=== PATIENT | male | born 1975 | race Caucasian/White ===

== ENCOUNTER 2017-11-09 20:18 | Emergency (ER) | payer MEDICARE, OTHER ==
[~2017-11-09] VITALS: Ht 167.6 cm; Wt 81.8 kg
[~2017-11-09 20:18] MED LIST: ZIPR20CA12 PO
[2017-11-09 20:21] VITALS: BP 143/89
[2017-11-09 21:22] LABS: BASOPHILS # (AUTO) 0.1 X10'3 (0-0.2); EOSINOPHILS # (AUTO) 0.3 X10'3 (0-0.9); EOSINOPHILS % (AUTO) 2.8 % (0-6); HEMATOCRIT 47.2 % (42.0-52.0); HEMOGLOBIN 16.5 g/dl (14.0-17.9); LYMPHOCYTES # (AUTO) 2.8 X10'3 (1.1-4.8); LYMPHOCYTES % (AUTO) 24.9 % (21-51); MEAN CORPUSCULAR HEMOGLOBIN 30.6 PG (27.0-31.0); MEAN CORPUSCULAR HGB CONC 34.9 % (33.0-36.5); MEAN CORPUSCULAR VOLUME 87.8 FL (78-98); MEAN PLATELET VOLUME 9.6 FL (7.4-10.4); MONOCYTES # (AUTO) 0.8 X10'3 (0-0.9); NEUTROPHILS # (AUTO) 7.3 X10'3 (1.8-7.7); NEUTROPHILS % (AUTO) 64.3 % (42-75); PLATELET COUNT 397 X10'3 (140-440); RED BLOOD COUNT 5.38 X10'6 (4.70-6.10); RED CELL DISTRIBUTION WIDTH 12.1 % (11.5-14.5); WHITE BLOOD COUNT 11.3 X10'3 (4.5-11.0)
[2017-11-09 21:25] LABS: INR 0.9 INR; PARTIAL THROMBOPLASTIN TIME 27 SECONDS (22-32); PROTHROMBIN TIME 9.6 SECONDS (9.0-12.0)
[2017-11-09 21:35] LABS: ALBUMIN 3.7 G/DL (3.4-5.0); ALBUMIN/GLOBULIN RATIO 0.8 (1.1-1.5); ALKALINE PHOSPHATASE 77 IU/L (46-116); ASPARTATE AMINO TRANSFERASE 25 U/L (10-37); BILIRUBIN,TOTAL 0.6 MG/DL (0.1-1.0); CALCIUM 8.7 MG/DL (8.5-10.1); CHLORIDE 102 MMOL/L (99-107); CREATININE 1.18 MG/DL (0.60-1.10); TOTAL CARBON DIOXIDE 22.3 MMOL/L (24-32); TOTAL PROTEIN 8.1 G/DL (6.4-8.2); eGFR 67 ML/MIN
[2017-11-09 22:20] LABS: ALANINE AMINOTRANSFERASE 49 U/L (12-78); BLOOD UREA NITROGEN 23 MG/DL (7-18); BUN/CREATININE RATIO 19.5 (5.4-32.0); POTASSIUM 3.7 MMOL/L (3.5-5.1)
[2017-11-09 22:22] LABS: ANION GAP 15 (8-16); SODIUM 139 MMOL/L (135-145)
[2017-11-09 22:28] LABS: GLUCOSE 139 MG/DL (70-104)
== END 2017-11-09 22:52 | disposition left against medical advice (07) ==
LOC: ER 20:18
DX: R00.2 Palpitations (principal); Z53.21 Procedure and treatment not carried out due to patient leaving prior to being seen by health care provider
CPT/HCPCS: 36415; 71045; 80053; 84484; 85025; 85610; 85730; 93005

== ENCOUNTER 2018-12-13 14:48 | Emergency (ER) | payer MEDICARE ==
[~2018-12-13] VITALS: Ht 180.3 cm; Wt 75.0 kg
[~2018-12-13 14:48] MED LIST changes: +etomidate 2mg/ml inj. ONE
[2018-12-13 15:37] LABS: CLARITY,URINE SLIGHTLY CLOUDY (Clear); COLOR,URINE AMBER (Yellow); GLUCOSE, URINE NEGATIVE (Neg); KETONES,URINE 40 mg/dl (Neg); LEUKOCYTE ESTERASE ,URINE NEGATIVE (Neg); NITRITES, URINE NEGATIVE (Neg); OCCULT BLOOD,URINE TRACE-INTACT (Neg); PH,URINE 6.5 (4.8-8.0); PROTEIN,URINE 30 mg/dl (Neg)
[2018-12-13 15:38] LABS: UA COLLECTION TYPE FOLEY CATH
[2018-12-13 15:44] LABS: SQUAMOUS EPITHELIAL CELL,UR NONE SEEN /LPF (FEW)
[2018-12-13 15:46] LABS: WBC CLUMPS,URINE FEW /HPF (NEGATIVE)
[2018-12-13 15:48] LABS: URINE AMPHETAMINE SCREEN NEGATIVE (Neg); URINE BARBITUATE SCREEN NEGATIVE (Neg); URINE BENZODIAZEPINES SCREEN NEGATIVE (Neg); URINE CANNABINOID SCREEN NEGATIVE (Neg); URINE COCAINE SCREEN NEGATIVE (Neg); URINE METHADONE SCREEN NEGATIVE (Neg); URINE OPIATE SCREEN NEGATIVE (Neg); URINE PHENCYCLIDINE SCREEN NEGATIVE (Neg)
[2018-12-13 15:50] LABS: CELLULAR CAST 0-4 /LPF (NEGATIVE); TRANSITIONAL EPI CELLS,URINE MODERATE /HPF
[2018-12-13] MEDS ORDERED: normal saline 1000ML IV soln IVB ONE (15:55)
--- NOTE | 2018-12-13 15:57 | NUR ---
PER DR ART: PLACE PT ON NON-REBREATHER 10L
[2018-12-13 16:00] LABS: BACTERIA,URINE 1+ /HPF (Neg); CAL OXALATE CRYSTALS FEW /HPF (NEGATIVE)
[2018-12-13] MEDS ORDERED: normal saline 1000ML IV soln IV ONE (16:00)
[2018-12-13 16:15] LABS: ABG BASE EXCESS -4.2 mmol/L (-2.0-3.0); ABG HCO3 19.2 mmol/L (22.0-26.0); ABG OXYGEN SATURATION 99.1 % (95-98); ABG PCO2 (T) 30.6 mmHg (35.0-48.0); ABG PH (T) 7.416 (7.350-7.450); ABG PO2 (T) 321.5 mmHg (83-108); FCOHb 0.3 % (0.5-1.5); FLOW 15 L/min; FMetHb 0.3 % (0.3-1.12); FO2Hb 98.5 % (94-100); PATIENT TEMPERATURE 37.2; RESPIRATORY RATE (OBSERVED) 20 b/min; TOTAL HEMOGLOBIN 13.5 G/dl (14.0-18.0)
--- NOTE | 2018-12-13 16:18 | NUR ---
PT IS NOW AWAKE, PT NOTIFIED THAT HE HAS BEEN PLACED ON A 5150 HOLD. SECURITY IS AT BEDSIDE SPEAKING WITH PT.
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
[2018-12-13] MEDS: metoprolol tartrate 1mg/ml inj IV SCH ×3 (16:35→17:05)
[2018-12-13 16:39] LABS: BASOPHILS % (AUTO) 0.4 % (0-1); EOSINOPHILS % (AUTO) 0.2 % (0-6); HEMATOCRIT 39.3 % (42.0-52.0); HEMOGLOBIN 13.5 g/dl (14.0-17.9); LYMPHOCYTES # (AUTO) 0.7 X10'3 (1.1-4.8); LYMPHOCYTES % (AUTO) 6.1 % (21-51); MEAN CORPUSCULAR HEMOGLOBIN 30.6 PG (27.0-31.0); MEAN CORPUSCULAR HGB CONC 34.3 g/dL (33.0-36.5); MEAN CORPUSCULAR VOLUME 89.2 FL (78-98); MEAN PLATELET VOLUME 7.3 FL (7.4-10.4); MONOCYTES # (AUTO) 1.8 X10'3 (0-0.9); MONOCYTES % (AUTO) 14.9 % (2-12); NEUTROPHILS # (AUTO) 9.4 X10'3 (1.8-7.7); NEUTROPHILS % (AUTO) 78.4 % (42-75); PLATELET COUNT 314 X10'3 (140-440); RED CELL DISTRIBUTION WIDTH 14.2 % (11.5-14.5)
[2018-12-13] MEDS ORDERED: OLANZapine **IM** 10 mg inj. IM ONE (16:50)
[2018-12-13] MEDS ORDERED: LORazepam 2 mg/ml vial IV ONE (16:50)
--- NOTE | 2018-12-13 16:52 | NUR ---
PT SCREAMING IN BED. STATED HE REFUSED TP HAVE XRAY DONE. DR MCGRAW NOTIFIED.
[2018-12-13 16:53] LABS: ALANINE AMINOTRANSFERASE 150 U/L (12-78); ALBUMIN 3.7 G/DL (3.4-5.0); ALBUMIN/GLOBULIN RATIO 1.2 (1.1-1.5); ALKALINE PHOSPHATASE 74 IU/L (46-116); ANION GAP 17 (8-16); ASPARTATE AMINO TRANSFERASE 113 U/L (10-37); BILIRUBIN,TOTAL 1.6 MG/DL (0.1-1.0); BLOOD UREA NITROGEN 14 MG/DL (7-18); CALCIUM 9.5 MG/DL (8.5-10.1); CHLORIDE 104 MMOL/L (99-107); CKMB RELATIVE INDEX 0.8 RATIO (0-2.5); CREATINE KINASE 130 U/L (39-308); ETHANOL < 0.010 GM/DL (0.0-0.010); GLUCOSE 147 MG/DL (70-104); MAGNESIUM 1.6 MG/DL (1.5-2.4); SODIUM 142 MMOL/L (135-145); TOTAL CARBON DIOXIDE 20.9 MMOL/L (24-32); TOTAL PROTEIN 6.9 G/DL (6.4-8.2); eGFR 55 ML/MIN
[2018-12-13 16:55] LABS: ACETAMINOPHEN < 2.0 UG/ML (10-30)
[2018-12-13 16:59] LABS: INR 1.1 INR; PARTIAL THROMBOPLASTIN TIME 23 SECONDS (22-32); PROTHROMBIN TIME 11.1 SECONDS (9.0-12.0)
[2018-12-13] MEDS ORDERED: magnesium 2GM in 50ml NS 50 ML IV ONE ×3 (18:00→23:30)
[2018-12-13] MEDS ORDERED: potassium 10mEq/100ml NS w/LIDOcaine (10mg/bag) IV ONE (18:00)
--- NOTE | 2018-12-13 20:06 | NUR ---
PATIENT HAS BEEN CALM AND SLEEPING.
--- NOTE | 2018-12-13 21:21 | NUR ---
PATIENT CALM AND SLEEPING. NO ATTEMPTS TO PULL OUT BENNETT OR CENTRAL LINE.
[2018-12-13] MEDS: potassium 10mEq/100ml NS w/LIDOcaine (10mg/bag) IV SCH ×2 (22:22→23:33)
--- NOTE | 2018-12-14 01:48 | NUR ---
Received report from nazia Reynoso rn. he provided a contact for pts sister : giovanni serrano [phone]
--- NOTE | 2018-12-14 05:00 | NUR ---
PT AWAKENED TO GET AM LABS. PT EXPLAINED THAT I WOULD TAKE OUT THE BENNETT CATH AND DRAW LABS . HE TOLD ME I OCULD TAKE OUT THE CATHETER BUT THAT I WOULD NOT DRAW ANY LABS. BENNETT REMOVED. I FLUSHED THE RIGHT FEMORAL TRIPLE LUMAN CENTRAL LINE AND ALL PORTS FLUSHING BUT NONE DRAWING. I UPDATED COOKER LOADER OF PTS REFUSAL.
[2018-12-14] MEDS ORDERED: LORazepam 2 mg/ml vial IV ONE (05:25)
--- NOTE | 2018-12-14 05:30 | NUR ---
PT REFUSING LAB DRAW PT BECOMING VERBALLY AGGRESSIVE TOWARDS STAFF WHEN ATTEMPTING TO EXPLAIN THE NEED FOR LABS AND YELLING AT STAFF, DR DOBBINS NOTIFIED AND ORDERS WRITTEN
[2018-12-14] MEDS ORDERED: CefTRIAXone 2gm/D5W 50ml 50 ML IV ONE (06:00)
--- NOTE | 2018-12-14 07:05 | NUR ---
LAB DRAW OBTAINED FROM CENTRAL LINE,SPECIMEN GIVEN TO WASTEWATER TREATMENT ENGINEER.PATIENT LESVIA,STATED "GET OUT OF HERE I DID NOT GIVE YOU PERMISSION TO BE HERE" IV ABT INFUSING.WE WILL MONITOR.
[2018-12-14 07:36] LABS: BASOPHILS # (AUTO) 0.1 X10'3 (0-0.2); EOSINOPHILS # (AUTO) 0.1 X10'3 (0-0.9); EOSINOPHILS % (AUTO) 1.4 % (0-6); HEMATOCRIT 36.4 % (42.0-52.0); HEMOGLOBIN 12.8 g/dl (14.0-17.9); LYMPHOCYTES # (AUTO) 2.1 X10'3 (1.1-4.8); LYMPHOCYTES % (AUTO) 26.6 % (21-51); MEAN CORPUSCULAR HEMOGLOBIN 31.3 PG (27.0-31.0); MEAN CORPUSCULAR HGB CONC 35.2 g/dL (33.0-36.5); MEAN CORPUSCULAR VOLUME 88.8 FL (78-98); MEAN PLATELET VOLUME 7.6 FL (7.4-10.4); MONOCYTES # (AUTO) 1.5 X10'3 (0-0.9); PLATELET COUNT 275 X10'3 (140-440); RED CELL DISTRIBUTION WIDTH 14.5 % (11.5-14.5); WHITE BLOOD COUNT 7.7 X10'3 (4.5-11.0)
[2018-12-14 08:02] LABS: ALANINE AMINOTRANSFERASE 130 U/L (12-78); ALBUMIN 3.1 G/DL (3.4-5.0); ALBUMIN/GLOBULIN RATIO 0.9 (1.1-1.5); ALKALINE PHOSPHATASE 70 IU/L (46-116); ANION GAP 15 (8-16); ASPARTATE AMINO TRANSFERASE 80 U/L (10-37); BILIRUBIN,TOTAL 1.7 MG/DL (0.1-1.0); BLOOD UREA NITROGEN 9 MG/DL (7-18); BUN/CREATININE RATIO 10.1 (5.4-32.0); CALCIUM 8.2 MG/DL (8.5-10.1); CHLORIDE 108 MMOL/L (99-107); CREATININE 0.89 MG/DL (0.60-1.10); GLUCOSE 82 MG/DL (70-104); MAGNESIUM 2.6 MG/DL (1.5-2.4); POTASSIUM 3.2 MMOL/L (3.5-5.1); SODIUM 144 MMOL/L (135-145); TOTAL PROTEIN 6.4 G/DL (6.4-8.2); eGFR > 90 ML/MIN
--- NOTE | 2018-12-14 08:35 | NUR ---
PATIENT ASLEEP AT THIS TIME.HR 77.
--- NOTE | 2018-12-14 10:14 | NUR ---
PATIENT ASLEEP,RESPIRATIONS REGULAR.
--- NOTE | 2018-12-14 11:23 | NUR ---
asking pt questions, non verbal. but mumbling to self. uncomprensible sounds.
[2018-12-14] MEDS ORDERED: diphenhydrAMINE 50 mg/ml inj IV ONE (11:45)
[2018-12-14] MEDS ORDERED: haloperidol lactate 5mg/ml inj IM ONE (11:45)
[2018-12-14] MEDS ORDERED: LORazepam 2 mg/ml vial IM ONE (11:45)
--- NOTE | 2018-12-14 11:46 | NUR ---
PT TRYING TO TAKE FEMORAL IV OUT. SITTING AT THE BEDSIDE, YELLING IM LEAVING IM GETTING OUT OF HERE. INFORMED PT HE IS ON A 5150. STATES, NO IM NOT. PT PLACED IN SOFT RESTRAINTS. SHOWED HIM A COPY OF 5150 AND HE RIPPED IT UP. INFORMED DR. ASHER, PLEASE SEE NEW ORDERS.
--- NOTE | 2018-12-14 12:03 | NUR ---
Note danny in ED - 12/14/18 at 1204 by [email or web address] PT YELLING AND COMBATIVE, SECURITY HERE TO ASSIST WHILE MEDICATIONS GIVEN. PT TOLERATED WELL.
--- NOTE | 2018-12-14 12:06 | NUR ---
PT YELLING AND COMBATIVE, SECURITY HERE TO ASSIST WHILE MEDICATIONS GIVEN. PT TOLERATED WELL.
--- NOTE | 2018-12-14 12:49 | NUR ---
pt calm and sleeping but arousable.
[2018-12-14 12:57] VITALS: BP 101/65
--- NOTE | 2018-12-14 13:31 | NUR ---
PT RESTING IN BED. PULSE OF 79, O2 OF 93.
--- NOTE | 2018-12-14 15:39 | NUR ---
pt awake calm and cooperative with care. put green scrubs on. voided dark yellow urine in urinal.
--- NOTE | 2018-12-14 20:02 | NUR ---
Patient noted to have pulled femoral central line out. Patient refused to let staff address the line. major sales associate Rosi made aware, advised to call security. Security asssited holding patient so central line insertion point could be assessed. Central line was completely out, no bleeding noted at insertion site. Tip noted to be intact. Central line being held in place by two sutures, sutures were cut and line discarded. Patient did not resist or struggle.
--- NOTE | 2018-12-15 03:12 | NUR ---
PT REFUSED MEDICATION AND TREATMENTS, HE APPEARS TO BE COMPETENT AND NOT ALTERED, PT WOULD NOT STAY IN HIS ROOM DESPITE NON-AGGRESSIVE VERBAL REDIRECTION, PT INFORMED THAT HE IS ON A 5150 HOLD AND THAT IF HE LEFT THE PROPERTY [employer] WOULD BE NOTIFIED AND HE WOULD BE DETAINED. PT CONTINUES TO WALK OUT IN AN AGGRESSIVE BEHAVIOR, SECURITY STAFF NOTIFIED, PT NOT ABLE TO BE REDIRECTED AND WAS ESCORTED OUT THE DOOR FOR STAFF SAFETY WELL PATIENT AND FAMILY MEMBER SAFETY. [facility].
--- NOTE | 2018-12-15 03:12 | NUR ---
pt decided to leave the er despite staff education on 5150 status, medications available, and possible treatments. pt seems competent and able to make own decisions. escorted out of er by security and pbx contacted [facility].
[2018-12-15] MEDS ORDERED: NO HOME MEDS (12:44)
== END 2018-12-15 03:16 | disposition left against medical advice (07) ==
LOC: ER 14:48
DX: F29 Unspecified psychosis not due to a substance or known physiological condition (principal); R41.82 Altered mental status, unspecified; I10 Essential (primary) hypertension; F32.9 Major depressive disorder, single episode, unspecified; F20.9 Schizophrenia, unspecified; Z88.8 Allergy status to other drugs, medicaments and biological substances; Z79.899 Other long term (current) drug therapy; Z56.0 Unemployment, unspecified
CPT/HCPCS: 36415; 36556; 36600; 70450; 80053; 80305; 80320; 80329; 81001; 82550; 82553; 82803; 82948; 83605; 83735; 84145; 84439; 84443; 84484; 85018; 85025; 85379; 85610; 85730; 87040; 87077; 87088; 87186; 93005; 96361; 96365; 96366; 96372; 96375; 96376; 99285; J0696; J1200; J1630; J2060; J3475; J3480; J7030; J3490

== ENCOUNTER 2018-12-15 11:53 | Emergency (ER) | payer MEDICARE ==
[~2018-12-15] VITALS: Ht 175.3 cm; Wt 75.0 kg
[~2018-12-15 11:53] MED LIST changes: -etomidate 2mg/ml inj. ONE
--- NOTE | 2018-12-15 12:42 | NUR ---
Dr. Fontaine notified of pt's admit. Stated he will write a 179.
[2018-12-15] MEDS ORDERED: NO HOME MEDS (12:44)
[2018-12-15] MEDS ORDERED: normal saline 1000ml 1,000 ML IV ONE (12:50)
[2018-12-15] MEDS ORDERED: iohexol 350MG/ML 100ml bottle IV ONE (14:08)
--- NOTE | 2018-12-15 14:20 | NUR ---
To CTA accompanied by security.
--- NOTE | 2018-12-15 15:34 | NUR ---
Pt. lying supine in bed with eyes closed.
[2018-12-15 17:24] LABS: ETHANOL < 0.010 GM/DL (0.0-0.010)
[2018-12-15 17:35] LABS: URINE AMPHETAMINE SCREEN NEGATIVE (Neg); URINE BARBITUATE SCREEN NEGATIVE (Neg); URINE BENZODIAZEPINES SCREEN NEGATIVE (Neg); URINE CANNABINOID SCREEN NEGATIVE (Neg); URINE COCAINE SCREEN NEGATIVE (Neg); URINE METHADONE SCREEN NEGATIVE (Neg); URINE OPIATE SCREEN NEGATIVE (Neg); URINE PHENCYCLIDINE SCREEN NEGATIVE (Neg)
--- NOTE | 2018-12-15 17:44 | NUR ---
Pt's sister's info: Mara Carline [phone].
--- NOTE | 2018-12-15 18:30 | NUR ---
pt sleeping, no c/o
--- NOTE | 2018-12-15 18:43 | NUR ---
[facility] CALLED TO REPORT SINCE PT LEFT THE HOSPITAL HE NEEDS NEW LAB WORK IN ORDER TO GET EVALUATED FOR PLACEMENT. TO BE INFORMED.
--- NOTE | 2018-12-15 20:37 | NUR ---
LAB ORDERS PLACED PER [facility] REQUEST.
[2018-12-15 20:56] LABS: BASOPHILS % (AUTO) 0.3 % (0-1); EOSINOPHILS # (AUTO) 0.2 X10'3 (0-0.9); EOSINOPHILS % (AUTO) 3.2 % (0-6); HEMATOCRIT 39.3 % (42.0-52.0); HEMOGLOBIN 13.1 g/dl (14.0-17.9); LYMPHOCYTES # (AUTO) 1.4 X10'3 (1.1-4.8); LYMPHOCYTES % (AUTO) 23.5 % (21-51); MEAN CORPUSCULAR HEMOGLOBIN 30.3 PG (27.0-31.0); MEAN CORPUSCULAR HGB CONC 33.3 g/dL (33.0-36.5); MEAN CORPUSCULAR VOLUME 91.1 FL (78-98); MEAN PLATELET VOLUME 8.4 FL (7.4-10.4); MONOCYTES # (AUTO) 0.9 X10'3 (0-0.9); MONOCYTES % (AUTO) 15.4 % (2-12); NEUTROPHILS # (AUTO) 3.5 X10'3 (1.8-7.7); NEUTROPHILS % (AUTO) 57.6 % (42-75); PLATELET COUNT 266 X10'3 (140-440); RED BLOOD COUNT 4.31 X10'6 (4.70-6.10); RED CELL DISTRIBUTION WIDTH 14.7 % (11.5-14.5)
[2018-12-15 20:59] LABS: ALANINE AMINOTRANSFERASE 94 U/L (12-78); ALBUMIN 2.9 G/DL (3.4-5.0); ALBUMIN/GLOBULIN RATIO 0.9 (1.1-1.5); ALKALINE PHOSPHATASE 67 IU/L (46-116); ANION GAP 12 (8-16); ASPARTATE AMINO TRANSFERASE 53 U/L (10-37); BILIRUBIN,TOTAL 1.1 MG/DL (0.1-1.0); BLOOD UREA NITROGEN 12 MG/DL (7-18); BUN/CREATININE RATIO 14.5 (5.4-32.0); CALCIUM 7.9 MG/DL (8.5-10.1); CHLORIDE 104 MMOL/L (99-107); CREATININE 0.83 MG/DL (0.60-1.10); GLUCOSE 83 MG/DL (70-104); POTASSIUM 3.2 MMOL/L (3.5-5.1); SODIUM 140 MMOL/L (135-145); TOTAL CARBON DIOXIDE 24.3 MMOL/L (24-32); TOTAL PROTEIN 6.1 G/DL (6.4-8.2); eGFR > 90 ML/MIN
--- NOTE | 2018-12-15 23:05 | NUR ---
PATIENT COMPLETED HIS TELEPSYCH CONSULT AND HE WILL CONTINUE TO BE HELD. THE PATIENT HAS DISORGANIZED THOUGHTS AND FEELS HE WAS POSIONED AND WANTS TO BE TREATED FOR THAT.
[2018-12-15] MEDS ORDERED: OLANZapine **IM** 10 mg inj. IM PRN (23:25)
[2018-12-16] MEDS ORDERED: olanzapine 10mg tablet PO PRN (07:50)
[2018-12-16] MEDS ORDERED: OLANZAPINE 5 MG TABLET PO PRN (07:54)
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
--- NOTE | 2018-12-16 10:16 | NUR ---
Sister- Mara [phone]
--- NOTE | 2018-12-16 11:15 | NUR ---
Call received from Munir Anderson RN, stating that patient had been accepted at [facility]. Christal Johnson from [facility] notified. Discharge orders received from Dr. Ragsdale.
[2018-12-16 11:16] VITALS: BP 140/84
== END 2018-12-16 11:24 ==
LOC: ER 11:53
DX: F29 Unspecified psychosis not due to a substance or known physiological condition (principal); R91.1 Solitary pulmonary nodule; F20.9 Schizophrenia, unspecified; F41.9 Anxiety disorder, unspecified; F31.9 Bipolar disorder, unspecified; Z88.8 Allergy status to other drugs, medicaments and biological substances; Z56.0 Unemployment, unspecified
CPT/HCPCS: 36415; 71275; 80053; 80305; 80320; 85025; 99285; J7030; Q9967

== ENCOUNTER 2018-12-16 11:20 | Inpatient (IN) | payer MEDICARE, OTHER ==
[~2018-12-16] VITALS: Ht 167.6 cm; Wt 73.8 kg
[~2018-12-16 11:20] MED LIST changes: +NO HOME MEDS; -ZIPR20CA12 PO
[2018-12-16] MEDS ORDERED: loperamide 2mg capsule PO PRN (11:50)
[2018-12-16] MEDS ORDERED: magnesium hydroxide 30ml (MOM) UD suspension PO PRN (11:50)
[2018-12-16] MEDS ORDERED: hydrOXYzine 25 MG tablet PO PRN (11:50)
[2018-12-16] MEDS ORDERED: acetaminophen 325mg tablet PO PRN ×2 (11:50)
[2018-12-16] MEDS ORDERED: tuberculin, purif. prot. deriv. 5 units/0.1ml ID ONE (11:50)
[2018-12-16] MEDS ORDERED: mag hydrox/Alum hydrox/simeth 30ml oral suspension PO PRN (11:50)
[2018-12-16] MEDS ORDERED: OLANZapine **IM** 10 mg inj. IM PRN (11:55)
[2018-12-16] MEDS ORDERED: OLANZapine 5mg rapidly disint. tablet PO PRN (11:55)
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
[2018-12-16 12:30] VITALS: BP 140/97
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
[2018-12-16 20:53] VITALS: BP 142/92
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
[2018-12-17 08:23] LABS: CHOL/HDL RATIO 3.9 (0.00-4.99); CHOLESTEROL 152 MG/DL (0-200); HDL CHOLESTEROL 39 MG/DL (35-60); LDL CHOLESTEROL 90 MG/DL (50-100); TRIGLYCERIDES 135 MG/DL (20-135)
[2018-12-17 08:25] LABS: HEMOGLOBIN A1C 5.2 % (4.5-6.2)
[2018-12-17 08:32] VITALS: BP 150/99
[2018-12-17] MEDS ORDERED: LORazepam 1 MG tablet PO PRN (12:55)
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
[2018-12-17 20:00] VITALS: BP 136/89
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
[2018-12-18 08:00] VITALS: BP 129/94
[2018-12-18 08:15] LABS: ALBUMIN 3.1 G/DL (3.4-5.0); ANION GAP 6 (8-16); BLOOD UREA NITROGEN 10 MG/DL (7-18); BUN/CREATININE RATIO 11.2 (5.4-32.0); CALCIUM 9.5 MG/DL (8.5-10.1); CHLORIDE 104 MMOL/L (99-107); CREATININE 0.89 MG/DL (0.60-1.10); GLUCOSE 94 MG/DL (70-104); POTASSIUM 3.9 MMOL/L (3.5-5.1); SODIUM 139 MMOL/L (135-145); TOTAL CARBON DIOXIDE 28.6 MMOL/L (24-32); eGFR > 90 ML/MIN
--- NOTE | 2018-12-18 15:27 | NUR ---
Nutrition consult re: pt report of 30 lbs weight loss in one month due to fasting. Pt current weight is 158 lbs on standing scale. Weight history is patient stated, November of 2017 patient stated that he weighed 180 lbs. Patient has no edema, no muscle weakness, good appetite and eating 100%, will now be sending double protein d/t being hungry after meals, d/w RN and dietary. No malnutrition at this time. Addendum: 12/18/18 at [address] Amended: Links added.
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
[2018-12-18 20:00] VITALS: BP 161/101
--- NOTE | 2018-12-18 22:53 | NUR ---
During the shift we received multiple calls from the hot saw operator stating that it was showing that a patient had eloped from the unit, Abel is the only patient with an elopement band and he was sitting in his room reading each time they called. I gave him a different elopement band, but it continued to trigger the elopement alarm so it had to be removed. Pt has not shown any AWOL type behavior and he stated "Don't worry, I am not going any where." Message left for Farm Planner of the unit to notify her of the issues with the alarm.
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
--- NOTE | 2018-12-19 02:36 | NUR ---
HospitalistDaniel paged @ 1770 re: HTN Abel Laws; Rm 331b, [facility]: Frequent htn since admission; pt w/o prescribed meds or dg. Avg BPs: 124-160/94-101. Avg. HRs: 89-110. Please evaluate. MD called unit; stated can wait until morning.
[2018-12-19 08:00] VITALS: BP 128/82
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
[2018-12-19 20:00] VITALS: BP 135/95
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
[2018-12-20 08:00] VITALS: BP 132/99
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
[2018-12-20] MEDS ORDERED: risperiDONE 0.5mg tablet PO ONE (15:10)
--- NOTE | 2018-12-20 17:57 | NUR ---
100% PO intake, meeting needs. No nutrition problem at this time. Recommend: 1. Continue regular diet 2. weekly wts Addendum: 12/20/18 at [address] Amended: Links added.
[2018-12-20 19:52] VITALS: BP 146/93
[2018-12-20 20:02] VITALS: BP 146/93
[2018-12-20] MEDS: risperiDONE 0.5mg tablet PO SCH (20:39)
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
[2018-12-21 07:47] VITALS: BP 111/77
[2018-12-21] MEDS ORDERED: risperiDONE 0.5mg tablet PO SCH (08:00)
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
[2018-12-21 20:00] VITALS: BP 126/88
[2018-12-21] MEDS: risperiDONE 0.5mg tablet PO SCH (20:20)
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
[2018-12-22 08:09] VITALS: BP 130/79
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
--- NOTE | 2018-12-22 17:47 | NUR ---
Pt refused to allow measurements to be done or pictures to be taken of right chest contusion, right side bruises or right groin scabs.
[2018-12-22] MEDS: risperiDONE 0.5mg tablet PO SCH (21:00)
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
[2018-12-23] MEDS: risperiDONE 0.5mg tablet PO SCH (21:00)
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
[2018-12-24] MEDS: risperiDONE 0.5mg tablet PO SCH (20:17)
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
[2018-12-25 07:41] VITALS: BP 131/87
--- NOTE | 2018-12-25 14:03 | NUR ---
1:1 DISCHARGE PLANNING SW was provided with Temporary Restraining Order paperwork to give to patient. SW provided paperwork to patient at 13:45 with security present. Patient reports paperwork is incorrect and fraudulent. SW encouraged patient to contact an finance attorney if he continued to disagree with paperwork served. GERA Jama
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
[2018-12-25] MEDS ORDERED: diphenhydrAMINE 50 mg/ml inj IM PRN (19:00)
[2018-12-25] MEDS ORDERED: LORazepam 2 mg/ml vial IM PRN (19:00)
[2018-12-25] MEDS ORDERED: haloperidol lactate 5mg/ml inj IM PRN (19:00)
--- NOTE | 2018-12-25 19:19 | NUR ---
Nursing Note: Per Dr. Claudio, if pt. refuses order for oral Risperdal this HS, administer IM Ativan, Benadryl, and Haldol. Save PRN IM Zyprexa for agitation.
[2018-12-25] MEDS: risperiDONE 0.5mg tablet PO SCH (20:17)
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
--- NOTE | 2018-12-26 05:08 | NUR ---
Nursing Note: Pt. awakens and begins perseverating over perceived somatic S/E r/t antipsychotic medication, Risperdal taken at HS. He c/o bilateral upper body tremors, waking up in a sweat, and muscle pain in back and chest. Pt. states, "The medication is affecting my heart and my whole body." Pt. continues to refuse V/S or physical assessment, states, "I have the right to refuse medical treatment." Pt. is ambulating, talking, and sitting up in Recreation Room at this time reading through paperwork; he continues to be irritable regarding the events of yesterday. Will endorse to AM shift and continue to monitor.
--- NOTE | 2018-12-26 11:59 | NUR ---
Reassessment: Noted that pt documented to have refused lunch and dinner 12/25 however with 100% intake all other meals meeting nutrient needs. LBM 12/25. No nutrition diagnosis at this time. Will continue to follow. Recommend: 1. Continue regular diet 2. weekly wts Addendum: 12/26/18 at [address] Amended: Links added.
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
[2018-12-26] MEDS: risperiDONE 0.5mg tablet PO SCH (21:47)
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
--- NOTE | 2018-12-27 20:33 | NUR ---
refused all vitals Addendum: 12/27/18 at 2032 by Mara Tam RN Amended: Links added.
[2018-12-27] MEDS: risperiDONE 0.5mg tablet PO SCH (21:43)
--- NOTE | 2018-12-27 22:00 | NUR ---
Unable to assess RR and O2 - pt refused assessment Addendum: 12/27/18 at 2204 by Chaparrita Amaya RN Amended: Links added.
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
--- NOTE | 2018-12-28 10:16 | NUR ---
refused assessment Addendum: 12/28/18 at 1022 by Sunita Leon RN Amended: Links added.
--- NOTE | 2018-12-28 10:16 | NUR ---
refused to engage in assessment Addendum: 12/28/18 at 1022 by Sunita Leon RN Amended: Links added.
--- NOTE | 2018-12-28 10:23 | NUR ---
refused vital signs
--- NOTE | 2018-12-28 11:26 | NUR ---
refused VS Addendum: 12/28/18 at 1127 by Sunita Leon RN Amended: Links added.
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
--- NOTE | 2018-12-28 19:42 | NUR ---
Pt refused vital signs and assessment, was able to feel pulse.
[2018-12-28] MEDS: risperiDONE 0.5mg tablet PO SCH (21:17)
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
[2018-12-29] MEDS: risperiDONE 0.5mg tablet PO SCH ×2 (08:12→20:35)
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
[2018-12-30] MEDS: risperiDONE 0.5mg tablet PO SCH ×2 (07:26→21:06)
--- NOTE | 2018-12-30 07:47 | NUR ---
Refused vitals Addendum: 12/30/18 at 0747 by Felicita Grant RN Amended: Links added.
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
--- NOTE | 2018-12-30 14:07 | NUR ---
Linoleum Floor Layer 1:1 The undersigned clinician was approached by Mr. Mathias after group and pt requested that this clinician meet with him to fill out an Advanced Directive. I informed the pt. that I was headed to a meeting now but that I hear his request. Consulted with SW. Guevara and charge nurse about his request and concerns related to it. Plan= continue to work with treatment team to support pt. Yasmeen Davis [facility]
--- NOTE | 2018-12-30 14:36 | NUR ---
1:1 DISCHARGE PLANNING SW met with pt and encouraged discussion of discharge planning to prevent pt from having only [facility] as a usp placement. Pt declined to plan and insisted on completing Advance Directive. SW provided pt with application and instructions. Pt requested SW to assist him in completing form. SW informed pt that SW would need to consult with a Tobacco Checkout Clerk for direction around legalities. Pt grew irritated w/ SW and began reading form and completing on his own. Pt designated "no one" in the person nominated section. GERA Jama
--- NOTE | 2018-12-30 17:28 | NUR ---
pt refused weight
--- NOTE | 2018-12-30 21:28 | NUR ---
Refused weekly weight.
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
[2018-12-31] MEDS: risperiDONE 0.5mg tablet PO SCH ×2 (08:10→21:05)
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
[2019-01-01] MEDS: risperiDONE 0.5mg tablet PO SCH ×2 (07:32→20:44)
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
--- NOTE | 2019-01-01 19:44 | NUR ---
Pt refused BP and temperature.
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
--- NOTE | 2019-01-02 05:39 | NUR ---
Pt awoke at 0430 and watched TV.
[2019-01-02 07:30] VITALS: BP 126/94
[2019-01-02] MEDS: risperiDONE 0.5mg tablet PO SCH ×2 (07:30→20:42)
--- NOTE | 2019-01-02 13:28 | NUR ---
Reassessment: Eating well, 100% regular diet, meeting nutrient needs. [facility] 01/02. No nutrition diagnosis at this time. Will continue to follow. Recommend: 1. Continue regular diet 2. weekly wts Addendum: 01/02/19 at [address] Amended: Links added.
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
[2019-01-02 20:00] VITALS: BP 122/83
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
[2019-01-03] MEDS: risperiDONE 0.5mg tablet PO SCH ×2 (07:28→20:46)
[2019-01-03 08:00] VITALS: BP 126/96
[2019-01-03] MEDS ORDERED: RISP2TAB3 PO (14:47)
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
[2019-01-03 20:00] VITALS: BP 120/85
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
[2019-01-04] MEDS: risperiDONE 0.5mg tablet PO SCH ×2 (07:40→21:00)
[2019-01-04 08:00] VITALS: BP 121/84
--- NOTE | 2019-01-04 12:21 | NUR ---
Nurse NOte: Spoke with pt about needing to move into another room to make room for a different pt. Pt questions why and unable to give pt information about another pt. Pt refuses to move out of his room into another room. PT claims to be in danger. Explained to pt that he is monitored every 15 minutes and all pts are disarmed. Pt continues to refuse to move room and refuses to take medications or treatment.
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
--- NOTE | 2019-01-04 19:48 | NUR ---
Pt refused assessment Addendum: 01/04/19 at 3 by Chaparrita Amaya RN Amended: Links added.
--- NOTE | 2019-01-04 19:50 | NUR ---
Pt refused vitals and assessment Addendum: 01/04/19 at 3 by Chaparrita Amaya RN Amended: Links added.
[2019-01-04 20:00] VITALS: BP 143/93
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
[2019-01-05 08:00] VITALS: BP 121/81
[2019-01-05] MEDS: risperiDONE 0.5mg tablet PO SCH ×2 (08:00→21:00)
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
[2019-01-05 19:55] VITALS: BP 122/71
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
[2019-01-06 08:00] VITALS: BP 115/81
[2019-01-06] MEDS: risperiDONE 0.5mg tablet PO SCH (08:00)
--- NOTE | 2019-01-06 10:45 | NUR ---
MEDICARE DISCHARGE APPEAL Patient filed Medicare Discharge Appeal on Sunday Case #[id number]. Medicare contacted stating they agree with physician for discharge. Patient will be discharged 01/07.
--- NOTE | 2019-01-06 11:33 | NUR ---
NUrse note: This nurse and Evelyn Director spoke with pt about the Medicare appeals decision. They decided that pt must be discharged by tomorrow at noon. Pt requested a postal superintendent. Pt explained he can not appeal the appeal and has access to the phone. Encouraged pt to come up with a discharge plan. Pt encouraged to go back to his home and to go to his court case to defend his eviction.
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
== END 2019-01-06 16:36 | disposition short-term general hospital (02) | DRG 885 ==
LOC: ADULT MH 11:20
PROVIDERS: ADMIT Psychiatry & Neurology Psychiatry; ATTEND Psychiatry & Neurology Psychiatry
DX: F20.0 Paranoid schizophrenia (principal); I10 Essential (primary) hypertension; R74.0 Nonspecific elevation of levels of transaminase and lactic acid dehydrogenase [LDH]; N62 Hypertrophy of breast; S20.211A Contusion of right front wall of thorax, initial encounter; Z79.899 Other long term (current) drug therapy; Z88.8 Allergy status to other drugs, medicaments and biological substances; W34.010A Accidental discharge of airgun, initial encounter; Y93.89 Activity, other specified; Y92.89 Other specified places as the place of occurrence of the external cause; Y99.8 Other external cause status
CPT/HCPCS: 36415; 80048; 80061; 83036; 87070; 93005; J1200; J1630; J2060

== ENCOUNTER 2022-06-04 13:33 | Emergency (ER) | payer MEDICARE ==
[~2022-06-04] VITALS: Ht 165.1 cm; Wt 91.8 kg
[~2022-06-04 13:33] MED LIST changes: -NO HOME MEDS; +RISP2TAB85 PO
[2022-06-04 13:54] VITALS: BP 137/83
[2022-06-04] MEDS ORDERED: CYCL-1 PO (15:54)
[2022-06-04] MEDS ORDERED: ketorolac trometh. 30mg/ml inj. IM ONE (15:55)
== END 2022-06-04 16:43 | disposition home or self-care (01) ==
LOC: ER 13:33
DX: M54.31 Sciatica, right side (principal); M79.604 Pain in right leg; M25.551 Pain in right hip; F41.9 Anxiety disorder, unspecified; F31.9 Bipolar disorder, unspecified; Z72.89 Other problems related to lifestyle; Z56.0 Unemployment, unspecified; Z79.899 Other long term (current) drug therapy
CPT/HCPCS: 96372; 99283; J1885